=== PATIENT | female | born 1965 | race Caucasian/White ===

== ENCOUNTER → 2019-09-22 | Outpatient (CLI) | payer MEDICARE, MEDICAID ==
--- NOTE | 2019-09-23 11:37 | RAD ---
LUMBAR SPINE WO CONTRAST Date: 09/22/2019 11:15 AM Indication: Low back pain Comparison: Lumbar spine radiographs 12/17/2016. Technique: Multi-planar multi-weighted magnetic resonance imaging of the lumbar spine was performed without intravenous contrast using the standard lumbar spine protocol. FINDINGS: The lumbar spine is normally aligned. No acute fracture. Mild multilevel degenerative disc desiccation and disc height loss. L5 hemangioma. The conus terminates at a normal level. No abnormal signal is seen within the visualized distal spinal cord. No clumping of intrathecal nerve roots. Left pelvic kidney. T12-L1: No disc bulge. No facet arthropathy. No significant spinal stenosis or neural foraminal narrowing. L1-L2: No disc bulge. No facet arthropathy. No significant spinal stenosis or neural foraminal narrowing. L2-L3: Disc bulge. Mild facet arthropathy. Prominent dorsal epidural fat. Moderate spinal stenosis lateral recess narrowing. Mild bilateral neural foraminal narrowing. L3-L4: Disc bulge. Mild facet arthropathy. Prominent dorsal epidural fat. Mild to moderate spinal stenosis and lateral recess narrowing. No neural foraminal narrowing. L4-L5: Disc bulge. Mild facet arthropathy. Mild spinal stenosis. No neural foraminal narrowing. L5-S1: Disc bulge with annular tear. Mild facet arthropathy. No spinal stenosis. Mild bilateral neural foraminal narrowing. IMPRESSION: [id number] lumbar spondylosis, detailed level by level above. Electronically signed by: Nickolas Sr MD (09/23/2019 11:34 AM) [id number]
== END | disposition home or self-care (01) ==
LOC: MRI 14:33
PROVIDERS: ATTEND Psychiatry & Neurology Neurology
DX: M51.27 Other intervertebral disc displacement, lumbosacral region (principal); M12.88 Other specific arthropathies, not elsewhere classified, other specified site; M48.07 Spinal stenosis, lumbosacral region
CPT/HCPCS: 72148